=== PATIENT | male | born 1970 | race Caucasian/White ===

== ENCOUNTER 2016-10-18 09:25 | Observation (INO) ==
[2016-10-18] MEDS ORDERED: Aspirin 81 MG TAB.CHEW PO ONE (09:30)
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
[2016-10-18 09:56] LABS: Basophils # 0.1 K/mcL (0.0-0.2); Basophils % 0.7 %; Eosinophils # 0.5 K/mcL (0.0-0.6); Eosinophils % 6.8 %; Hematocrit 41.9 % (37.5-50.1); Hemoglobin 14.7 g/dL (12.9-16.9); Immature Granulocytes % 0.1 % (0-4); Lymphocytes # 1.3 K/mcL (0.6-4.6); Lymphocytes % 19.5 %; Mean Corpuscular HGB Conc 35.1 g/dL (31.6-35.5); Mean Corpuscular Hemoglobin 33.1 pg (28.0-33.3); Mean Corpuscular Volume 94.4 fL (83.0-100.0); Mean Platelet Volume 9.3 fL (9.4-12.4); Monocytes # 0.7 K/mcL (0.0-1.3); Monocytes % 9.7 %; Neutrophils # 4.3 K/mcL (1.6-8.9); Platelet Count 144 K/mcL (140-400); Red Blood Count 4.44 M/mcL (4.19-5.50); Red Cell Distribution Width 13.4 % (11.5-14.5); Segmented Neutrophils % 63.2 %
[2016-10-18 10:00] LABS: Prothrombin Time 11.3 Seconds (9.4-12.1)
[2016-10-18 10:02] LABS: Activated Partial Thrombo Time 32.2 Seconds (26.0-36.0)
[2016-10-18 10:12] LABS: BUN/Creatinine Ratio 16 (6-26); Blood Urea Nitrogen 16 mg/dL (8-26); Carbon Dioxide 26 mEq/L (19-29); Chloride 103 mEq/L (98-109); Glucose 91 mg/dL (70-99); Osmolality,Calculated 291 (280-300); Potassium 3.8 mEq/L (3.5-4.5); Sodium 140 mEq/L (136-145); eGFR For African Americans > 60 (> 60); eGFR For Non-African Americans > 60 (> 60)
[2016-10-18] MEDS ORDERED: Ondansetron 4 MG/2 ML VIAL IVP PRN (11:48)
[2016-10-18] MEDS ORDERED: Ibuprofen 400 MG TABLET PO PRN (11:48)
[2016-10-18] MEDS ORDERED: *HR* HYDROcodone/Acet 5/325 mg TABLET PO PRN (11:48)
[2016-10-18] MEDS ORDERED: MOM Conc 10 ML UD.LIQ PO PRN (11:48)
[2016-10-18] MEDS ORDERED: Naloxone 0.4 MG/ML INJ IVP PRN (11:48)
[2016-10-18] MEDS ORDERED: Acetaminophen 325 MG TABLET PO PRN (11:48)
--- NOTE | 2016-10-18 16:29 | Internal Med History&Physical ---
Date of Encounter: 10/18/16 Time of Encounter: 15:40 Assessment and Plan (1) Chest pain Current visit: Yes Status: Acute Repeat cardiac enzymes have been ordered. I will also check a d-dimer. Qualifiers: Chest pain type: precordial pain Qualified Code(s): R07.2 - Precordial pain (2) COPD (chronic obstructive pulmonary disease) Current visit: Yes Status: Chronic We will check room air oximetry prior to discharge. Qualifiers: COPD type: unspecified COPD Qualified Code(s): J44.9 - Chronic obstructive pulmonary disease, unspecified (3) Hepatitis C Current visit: Yes Status: Acute We will let his PCP do primary management. Qualifiers: Viral hepatitis chronicity: unspecified Hepatic coma status: without hepatic coma Qualified Code(s): B19.20 - Unspecified viral hepatitis C without hepatic coma Internal Medicine - H&P: HPI Chief complaint: Cough and dyspnea Admitted From: Home Plans for Post Hospital Care: Home History of present illness: Mr. Huff is a 46 year old male who came to emergency room stating he had increasing cough and dyspnea over the proceeding 12-24 hours. He had discomfort in his chest that seemed to be more intense than usual discomfort he has had since undergoing three-vessel CABG surgery May 2016. He describes the sensation as a "tightness" or "squeezing" in his chest. He was evaluated in emergency room and felt to deserve admission to [facility] floor for ongoing care needs. He denies history of DVT or pulmonary embolus. He is uncertain if he has history of heart failure. He does not receive treatment for hypertension. Past Med Surg Social Fam HX - Past Medical History Medical history: atrial fibrillation, COPD, coronary artery disease, seizures, other Psychiatric history: anxiety - Past Surgical History Surgical History: coronary bypass (CABG), orthopedic, other - Social History Smoking Status: Current every day smoker Packs per day: 1.5 Smokeless Tobacco Status: No Alcohol use: heavy Drug use: none Internal Medicine - H&P: Meds Allergies Amoxicillin Allergy (Verified 10/18/16 09:27) See Comments All Systems PM: A 10-system review of systems was performed and is negative for pertinent findings except as documented above in the HPI. Review of systems: Gen.: He states his weight is increased approximately 30 pounds in the past year Cardiovascular: As per history of present illness Respiratory: He has smoked since age 10 up to 3-1/2 packs per day. He has a diagnosis of COPD but does not wear home oxygen. GI: He was diagnosed with hepatitis C approximately 2005 but has not received definitive treatment. He denies other disorders of his liver gallbladder or exocrine pancreas : He has had prostatitis in the past. He has frequent stream initiation problems. Denies other kidney or bladder disorders. Neurologic: He claims he has had 2 seizures in the past. His most recent one was approximately 2 weeks ago. He does not know what type seizures he has. He was prescribed Tegretol in the past but this was later changed to Keppra. However he does not take Keppra on a regular basis because he reports visual side effects. He denies large distribution strokes. Endocrine: He denies diabetes thyroid disease or hyperlipidemia Hematology/oncology: He was told at one time he had a nodule on his back that needed further evaluation. He denies known internal malignancies or anemia Psychiatric: He has anxiety and depression but denies other mental health diagnosis Musk skeletal: He has DJD but denies gout or other bone joint or muscle disorders. - Constitutional Vitals: Temp Pulse Resp BP Pulse Ox 97.7 F 62 16 108/62 98 10/18/16 14:20 10/18/16 14:20 10/18/16 14:20 10/18/16 14:20 10/18/16 14:20 Exam: Gen.: He is a well-developed well-nourished male who appears in no severe distress at present time HEENT: Head is atraumatic normocephalic. Eyes: EOMI. There is no scleral icterus. Mouth: Mucosa is moist. Neck: Supple and nontender. There is no thyromegaly or adenopathy noted. Heart: Regular without murmurs gallops or ectopics Lungs: No wheezes or crackles are heard Chest: He is tender in his left costosternal joints stating "that is the pain" when pressed. He has a healing midline sternal incision and bilateral upper abdominal incisions from recent CABG surgery. Abdomen: Soft and nontender. No masses or guarding are noted. Extremities: There is no cyanosis edema or clubbing noted. Dorsalis pedis and posttibial pulses are 1-2 over 2 bilaterally. Neurologic: Mental status: He is talkative and a good historian. Cranial nerves : Smile is symmetric. Forehead wrinkles bilaterally. Tongue protrudes midline. EOMI. Motor: There is no pronator drift. Cerebellar: Finger to nose intact bilaterally. Skin: Warm and dry Internal Med - H&P Results - Labs CBC & Chem 7: 10/18/16 09:44 10/18/16 09:40 Labs: Cardiac Enzymes 10/18/16 Range/Units 15:41 Troponin I 0.01 (0-0.03) ng/mL - VTE Documentation of Mechanical Device: Graduated compression elastic hosiery
--- NOTE | 2016-10-18 18:15 | Electrocardiograph Report ---
[place] [id number] Test Date: 2016-10-18 Pat Name: Chino Huff Department: 9201 Room: [facility] Gender: M [employer]: [id number] : 1970 Requested By: Matthew Boss Order Number: [id number] Cody MD: Shanell Green Measurements Intervals [address] Rate: 74 P: 47 AR: 179 QRS: 19 QRSD: 101 T: 76 QT: 452 QTc: 479 Interpretive Statements SINUS RHYTHM PROLONGED QT INTERVAL Electronically Signed On 10-18-2016 18:14:04 EDT by Shanell Green
[2016-10-18 20:32] LABS: ABG Base Excess 0.2 mEq/L (-2.0 to 3.0); ABG HCO3 26.8 mEQ/L (21-27); ABG Oxygen Saturation 95 % (95-98); ABG PCO2 50 mmHg (35-45); ABG PH 7.34 pH Units (7.32-7.45); ABG PO2 79 mmHg (85-104); ABG TCO2 28.4 mEq/L (20-26)
[2016-10-18] MEDS: *HR* Rivaroxaban 15 MG TABLET PO SCH (21:11)
[2016-10-19] MEDS: *HR* Rivaroxaban 15 MG TABLET PO SCH (07:45)
[2016-10-19] MEDS: *HR* Amiodarone 200 MG TABLET PO SCH ×2 (07:46→12:56)
[2016-10-19] MEDS ORDERED: Gabapentin 100 MG CAPSULE PO SCH (09:00)
[2016-10-19] MEDS ORDERED: Folic Acid 1 MG TABLET PO SCH (09:00)
[2016-10-19] MEDS ORDERED: Aspirin 81 MG TAB.CHEW PO SCH (09:00)
[2016-10-19] MEDS ORDERED: NON-FORMULARY MEDICATION 1 EACH EACH (Omeprazole [Prilosec] 40 MG) PO SCH (09:00)
[2016-10-19] MEDS ORDERED: Aspirin 325 MG TABLET PO SCH (09:00)
[2016-10-19 11:17] VITALS: BP 94/52
--- NOTE | 2016-10-19 11:30 | Discharge Summary ---
Date of Encounter: 10/19/16 Time of Encounter: 11:15 - Discharge Diagnosis (1) Pulmonary embolus Priority: Primary Status: Acute Qualifiers: Pulmonary embolism type: other Chronicity: acute Acute cor pulmonale presence: without acute cor pulmonale Qualified Code(s): I26.99 - Other pulmonary embolism without acute cor pulmonale (2) COPD (chronic obstructive pulmonary disease) Priority: Secondary Status: Chronic Qualifiers: COPD type: unspecified COPD Qualified Code(s): J44.9 - Chronic obstructive pulmonary disease, unspecified (3) Hepatitis C Priority: Secondary Status: Chronic Qualifiers: Viral hepatitis chronicity: unspecified Hepatic coma status: without hepatic coma Qualified Code(s): B19.20 - Unspecified viral hepatitis C without hepatic coma - Discharge Medications Prescriptions: Alprazolam [Xanax 0.25 MG Tablet] 0.25 mg PO Q6H PRN #20 tablet PRN Reason: Anxiety Rivaroxaban [Xarelto] 15 mg PO BID #40 tablet Home Medications: Amiodarone [Cordarone] 200 mg PO DAILY 10/18/16 [History] Aspirin [Lo-Dose Aspirin EC] 81 mg PO BID 10/18/16 [History] Ferrous Sulfate [Iron] 325 mg PO QDPC 10/18/16 [History] Fluticasone/Vilanterol [Breo Ellipta 100-25 Mcg INH] 1 each IH QDPC 10/18/16 [ History] Folic Acid 1 mg PO DAILY 10/18/16 [History] Gabapentin [Neurontin] 100 mg PO TID 10/18/16 [History] LevETIRAcetam [Keppra] 750 mg PO BID 10/18/16 [History] Montelukast [Singulair] 10 mg PO QDPC 10/18/16 [History] Omeprazole [PriLOSEC] 40 mg PO DAILY 10/18/16 [History] Alprazolam [Xanax 0.25 MG Tablet] 0.25 mg PO Q6H PRN #20 tablet 10/19/16 [Rx] Rivaroxaban [Xarelto] 15 mg PO BID #40 tablet 10/19/16 [Rx] Allergies/Adverse Reactions: Allergies Amoxicillin Allergy (Verified 10/18/16 09:27) See Comments Procedures/tests Complete & Pending: Procedures Performed prior 72 hours Category Date Time Status CTA chest [CT angio chest] [CT] Routine Cat Scan 10/18/16 18:11 Completed EKG [ECG 12 lead ECG] [ECG] Routine Y 10/18/16 12:22 Completed Date of admission: 10/18/16 11:20 Primary care physician: Sourav Escamilla - Patient Status Disposition: Home, Self-Care Condition: Good Functional capacity at discharge: independent ambulation Overall status at discharge: patient is progressing back to baseline - Discharge Instructions Follow Up With: Sourav Higgins MD [Primary Care Provider] - 1 week - Diet and Activity Activity: resume usual activities as tolerated Diet: advance to your usual diet Hospital course: Mr. Huff is a 46 year old male who came to emergency room stating he had increasing cough and dyspnea over the proceeding 12-24 hours. He had discomfort in his chest that seemed to be more intense than usual discomfort he has had since undergoing three-vessel CABG surgery May 2016. He describes the sensation as a "tightness" or "squeezing" in his chest. He was evaluated in emergency room and felt to deserve admission to [facility] for ongoing care needs. Initial orders were written by the emergency room physician. I saw him on October 18 and performed the history and physical. Repeat cardiac enzymes showed no evidence of myocardial damage. I ordered a d-dimer which returned elevated at 803. A chest CT was done and showed probable left lower lobe pulmonary embolus. He was started on Xarelto 15 mg twice a day. His discomfort was significantly improved when I saw him on follow-up October 19. His vital signs remained stable and he felt stable for discharge home which I felt was reasonable. He will follow with his PCP within one week. I had a long discussion with him about need to discontinue smoking and alcohol use. He will be given Xanax for prn use for alcohol withdrawal. He will use OTC nicotine patches for tobacco cessation. His PCP can do primary management or refer as needed for hepatitis C treatment. Room air oximetry will be checked on a 6 minute walk prior to discharge. I explained he would need to be on oral anticoagulants for a minimum of 3 months. - Time Spent with Patient Total time spent providing and/or coordinating discharge services: - Constitutional Vitals: Temp Pulse Resp BP Pulse Ox 98.5 F 62 18 94/52 92 L 10/19/16 07:29 10/19/16 11:16 10/19/16 11:16 10/19/16 11:16 10/19/16 11:16 - VTE Documentation of Mechanical Device: Graduated compression elastic hosiery
--- NOTE | 2016-10-19 12:21 | Electrocardiograph Report ---
[place] [id number] Test Date: 2016-10-18 Pat Name: Chino Huff Department: 9202 Room: [facility] Gender: M Training Associate: Douglas : 1970 Requested By: Kwasi Rowe Order Number: [id number] Reading MD: Berto Pennington MD Measurements Intervals [place] Rate: 58 P: ME: 0 QRS: 40 QRSD: 100 T: 80 QT: 512 QTc: 509 Interpretive Statements sinus bradycardia PROLONGED QT INTERVAL Electronically Signed On 10-19-2016 12:20:01 EDT by Berto Pennington MD
[2016-10-19 13:42] LABS: Amphetamine Screen,Urine Positive ng/mL (Cutoff=1000); Barbiturate Screen,Urine Negative ng/mL (Cutoff=200); Benzodiazepines Screen,Urine Negative ng/mL (Cutoff=200); Cannabinoid Screen,Urine Negative ng/mL (Cutoff = 50); Cocaine Screen,Urine Negative ng/mL (Cutoff= 300); Opiate Screen,Urine Negative ng/mL (Cutoff=300); Phencyclidine Screen,Urine Negative ng/mL (Cutoff=25)
[2016-10-20] MEDS ORDERED: Aspirin 81 MG TAB.CHEW PO SCH (09:00)
== END 2016-10-19 13:30 | disposition home or self-care (01) ==
LOC: INPPIK 09:25 → EMEROOPIK 09:25 → INPPIK 11:37
PROVIDERS: ADMIT Internal Medicine; ATTEND Internal Medicine